=== PATIENT | female | born 1965 | race Caucasian/White ===

== ENCOUNTER → 2016-07-09 | Outpatient (CLI) | payer OTHER ==
--- NOTE | 2016-07-09 11:44 | REPMRS ---
Patient History The patient states she had a clinical breast exam in 06/2016. Patient is nulliparous. No known family history of cancer. Taking hormonal contraceptives for 33 years. Digital Woman Screen Mammo: July 09, 2016 - Exam #: [id number] Bilateral CC and MLO view(s) were taken. Technologist: Margaret Garcia, Technologist Prior study comparison: July 07, 2015, digital woman screen mammo performed at [facility]. July 01, 2014, digital woman screen mammo performed at [facility]. June 29, 2013, digital woman screen mammo performed at [facility]. FINDINGS: There are scattered fibroglandular densities. There has been no change in the appearance of the mammogram from the prior studies. There is a mild amount of scattered fibroglandular density which is fairly symmetric. There is no interval development of dominant mass, architectural distortion, or clustered microcalcification suggestive of malignancy. ASSESSMENT: BI-RADS/ACR category 1 mammogram. Negative. Recommendation Routine screening mammogram in 1 year (for women over age 40). This mammogram was interpreted with the aid of an FDA-approved computer-aided dectection system. Electronically Signed By: Shaq Howard MD 07/09/16 7040
== END ==
LOC: M WHC 10:05
PROVIDERS: ATTEND Nurse Practitioner Family
DX: Z12.31 Encounter for screening mammogram for malignant neoplasm of breast (principal)

== ENCOUNTER → 2017-07-11 | Outpatient (CLI) | payer OTHER | LOC: M WHC 10:26 | DX: Z12.31 Encounter for screening mammogram for malignant neoplasm of breast (principal) ==

== ENCOUNTER → 2018-07-17 | Outpatient (CLI) | payer OTHER ==
--- NOTE | 2018-07-17 11:25 | REPMRS ---
Patient History The patient states she had a clinical breast exam in 06/2018. Patient is postmenopausal and is nulliparous. Family history of colorectal cancer at age 50 or over in maternal aunt, colorectal cancer at age 50 or over in maternal aunt. Took hormonal contraceptives for 34 years. Taking estrogen for 11 months. Digital Woman Screen Mammo: July 17, 2018 - Exam #: [id number] Bilateral CC and MLO view(s) were taken. Technologist: Margaret Garcia, Technologist Prior study comparison: July 11, 2017, digital woman screen mammo performed at [facility]. July 09, 2016, digital woman screen mammo performed at [facility]. July 07, 2015, digital woman screen mammo performed at [facility]. FINDINGS: There are scattered fibroglandular densities. There has been no change in the appearance of the mammogram from the prior studies. There is a mild amount of scattered fibroglandular density which is fairly symmetric. There is no interval development of dominant mass, architectural distortion, or clustered microcalcification suggestive of malignancy. 3-D tomosynthesis shows no additional findings. Assessment: BI-RADS/ACR category 1 mammogram. Negative Mammogram. Recommendation Routine screening mammogram of both breasts in 1 year. This patient's Lifetime Breast Cancer RIsk is estimated at 10.9 %. This mammogram was interpreted with the aid of an FDA-approved computer-aided dectection system. Electronically Signed By: Shaq Howard MD 07/17/18 [id number]
== END ==
LOC: M WHC 10:21
PROVIDERS: ATTEND Nurse Practitioner Family
DX: Z12.31 Encounter for screening mammogram for malignant neoplasm of breast (principal)

== ENCOUNTER → 2018-07-17 | Outpatient (REF) | payer OTHER ==
[2018-07-20 14:44] LABS: HPV HYBRID CAPTURE II Negative (Negative)
== END ==
LOC: M SFHCWAGY 10:36
PROVIDERS: ATTEND Nurse Practitioner Family
DX: Z12.4 Encounter for screening for malignant neoplasm of cervix (principal)
CPT/HCPCS: 87624; G0123

== ENCOUNTER → 2019-07-26 | Outpatient (CLI) | payer OTHER ==
--- NOTE | 2019-07-26 12:20 | REPMRS ---
Patient History The patient states she has not had a clinical breast exam in over a year. Family history of colorectal cancer at age 50 or over in maternal aunt, colorectal cancer at age 50 or over in maternal aunt. Took hormonal contraceptives for 34 years. Taking estrogen for 11 months. 3D TOMOSYNTHESIS WAS PERFORMED. The [facility] lifetime risk for breast cancer is 10.7%. Digital Woman Screen Mammo: July 26, 2019 - Exam #: [id number] Bilateral CC and MLO view(s) were taken. Technologist: Donita Monsalve, Technologist Prior study comparison: July 17, 2018, bilateral digital woman screen mammo performed at [facility], [place]. July 11, 2017, digital woman screen mammo performed at [facility] [place]. FINDINGS: There are scattered fibroglandular densities. There has been no change in the appearance of the mammogram from the prior studies. There is a mild amount of residual fibroglandular tissue which is fairly symmetric. There is no interval development of dominant mass, architectural distortion, or clustered microcalcification suggestive of malignancy. Assessment: BI-RADS/ACR category 1 mammogram. Negative Mammogram. Recommendation Routine screening mammogram in 1 year (for women over age 40). This mammogram was interpreted with the aid of an FDA-approved computer-aided dectection system. Electronically Signed By: Ozzy Wetzel MD 07/26/19 [id number]
== END ==
LOC: M WHC 10:40
PROVIDERS: ATTEND Nurse Practitioner Family
DX: Z12.31 Encounter for screening mammogram for malignant neoplasm of breast (principal)

== ENCOUNTER → 2020-07-28 | Outpatient (CLI) | payer OTHER ==
--- NOTE | 2020-07-28 12:15 | REPMRS ---
Patient History The patient states she had a clinical breast exam in 07/2020. Patient is postmenopausal and is nulliparous. Family history of colorectal cancer at age 50 or over in maternal aunt, colorectal cancer at age 50 or over in maternal aunt. Took hormonal contraceptives for 34 years. Took estrogen for 1 year. Digital Woman Screen Mammo: July 28, 2020 - Exam #: [id number] Bilateral CC and MLO view(s) were taken. Technologist: Margaret Garcia, Technologist Prior study comparison: July 26, 2019, bilateral digital woman screen mammo performed at [facility]. July 17, 2018, bilateral digital woman screen mammo performed at [facility]. July 11, 2017, digital woman screen mammo performed at [facility]. FINDINGS: The breast tissue is almost entirely fat. The [employer] volumetric breast density category is: A. There has been no change in the appearance of the mammogram from the prior studies. There is no interval development of dominant mass, architectural distortion, or grouped microcalcification typical of malignancy. 3-D tomosynthesis shows no additional findings. Assessment: BI-RADS/ACR category 1 mammogram. Negative Mammogram. Recommendation Routine screening mammogram of both breasts in 1 year (for women over age 40). This patient's [facility] Lifetime Breast Cancer RIsk is estimated at 10.4 %. This mammogram was interpreted with the aid of an FDA-approved computer-aided dectection system. Electronically Signed By: Shaq Howard MD 07/28/20 [id number]
== END ==
LOC: M WHC 10:05
PROVIDERS: ATTEND Nurse Practitioner Family
DX: Z12.31 Encounter for screening mammogram for malignant neoplasm of breast (principal); Z92.0 Personal history of contraception

== ENCOUNTER → 2021-11-13 | Outpatient (CLI) | payer OTHER | LOC: M WHC 08:06 | PROVIDERS: ATTEND Advanced Practice Midwife | DX: Z12.31 Encounter for screening mammogram for malignant neoplasm of breast (principal) ==

== ENCOUNTER → 2022-02-11 | Outpatient (REF) | payer OTHER | LOC: M PLALAB 13:53 | PROVIDERS: ATTEND Advanced Practice Midwife | DX: N84.1 Polyp of cervix uteri (principal) ==

== ENCOUNTER → 2022-11-26 | Outpatient (CLI) | payer OTHER | LOC: M WHC 08:55 | PROVIDERS: ATTEND Advanced Practice Midwife | DX: Z12.31 Encounter for screening mammogram for malignant neoplasm of breast (principal) ==

== ENCOUNTER → 2022-11-26 | Outpatient (REF) | payer OTHER | LOC: M PLALAB 09:31 | PROVIDERS: ATTEND Advanced Practice Midwife | DX: Z12.4 Encounter for screening for malignant neoplasm of cervix (principal) | CPT/HCPCS: 87624; G0123 ==

== ENCOUNTER → 2023-12-02 | Outpatient (CLI) | payer OTHER | LOC: M WHC 09:05 | PROVIDERS: ATTEND Advanced Practice Midwife | DX: Z12.31 Encounter for screening mammogram for malignant neoplasm of breast (principal) ==

== ENCOUNTER → 2024-03-26 | Outpatient (CLI) | payer OTHER ==
[~2024-03-26] MED LIST: ISOVUE-300 61% 100ML VIAL As Ordered ONE; LIDOCAINE 1% MDV 20ML VIAL As Ordered ONE; methylPREDNISolone SUSP 40MG/ML 1ML VIAL (DEPO MEDROL) As Ordered ONE
== END ==
LOC: M RAD 12:51
PROVIDERS: ATTEND Orthopaedic Surgery
DX: M19.011 Primary osteoarthritis, right shoulder (principal)
CPT/HCPCS: 20610; 77002; J1010; Q9967

== ENCOUNTER → 2025-02-07 | Outpatient (CLI) | payer OTHER | LOC: M WHC 07:55 | PROVIDERS: ATTEND Advanced Practice Midwife | DX: Z12.31 Encounter for screening mammogram for malignant neoplasm of breast (principal) ==